=== PATIENT | female | born 1965 | race Caucasian/White ===

== ENCOUNTER 2023-09-17 14:03 | Outpatient (CLI) | payer OTHER, SELFPAY ==
--- NOTE | ~2023-09-17 | US_ITS ---
EXAMINATION: US thyroid DATE: 09/17/2023 14:30 INDICATION: Right thyroid nodule. TECHNIQUE: Multiple ultrasound images of the thyroid were obtained. COMPARISON: None. FINDINGS: The right thyroid lobe measures 4.7 x 2.7 x 2.2 cm. The left thyroid lobe measures 4.5 x 1.7 x 1.5 c m. In the right thyroid lobe, there is a 2.6 cm predominantly solid, hypoechoic, wider than tall nod ule with lobulated margin without echogenic foci (TI-RADS TR4). In the left thyroid lobe, there is a 10 mm almost entirely cystic nodule (TR1). IMPRESSION: 1. Thyroid nodules. Ultrasound-guided fine needle aspiration of the 2.6 cm right thyroid nodule is re commended. Reviewed, dictated and finalized at location A. IMPRESSION: 1. Thyroid nodules. Ultrasound-guided fine needle aspiration of the 2.6 cm righ t thyroid nodule is recommended.
== END 2023-09-17 14:04 | disposition home or self-care (01) ==
LOC: CHSIMG 14:09
PROVIDERS: PCP Physician Assistant; Visit Provider Registered Nurse
DX: E04.2 Nontoxic multinodular goiter (principal)
CPT/HCPCS: 76536

== ENCOUNTER 2024-04-22 12:25 | Outpatient (CLI) | payer OTHER, SELFPAY ==
--- NOTE | ~2024-04-22 | CT_ITS ---
CT Scan of the Chest without Contrast: Clinical Indication: Lung cancer screening, nicotine dependence Technique: Contiguous sections were acquired throughout the chest without intravenous contrast. Dose reduction technique was used on this scan by utilizing automated exposure control and iterative recon struction technique. The dose-length product (DLP) was 223.61 mGy-cm. Findings: There is no evidence of any significant mediastinal, hilar or axillary lymphadenopathy. The mediastin al soft tissues appear normal. There is no evidence of pleural or pericardial effusion. The lungs are clear, aside from calcified left upper lobe granuloma. Images through the upper abdomen reveal no abnormalities. Impression: Lung RADS 2: Benign appearance. 12 month follow-up screening CT advised. Reviewed, dictated and finalized at location . INAL INTELLIGENCE ANALYST Impression: Lung RADS 2: Benign appearance. 12 month follow-up screening CT advised.
--- NOTE | ~2024-04-22 | MM_ITS ---
EXAMINATION: MM screening fredy BI w elisa HISTORY: Screening TECHNIQUE: Craniocaudal and mediolateral oblique 3-D tomosynthesis images were obtained and synthetic 2-D images were generated. CAD analysis was submitted and interpreted. COMPARISON: No prior mammogram is available for comparison at this institution. BREAST PARENCHYMAL COMPOSITION: There are scattered areas of fibroglandular density. FINDINGS: There is no evidence of suspicious mass, calcification, or architectural distortion to sugg est malignancy in either breast. There has been no suspicious interval change. IMPRESSION: 1. No mammographic evidence of malignancy. 2. Recommend routine screening mammography in one year. BI-RADS Category 1: Negative Reviewed, dictated and finalized at location A. ENGINEER
--- OUTSIDE RECORDS SUMMARY | 2024-04-24 00:20 | XMS_ITS ---
Author Organization Unknown Address [address] [place] [address] [phone] Phone Care Team Providers Care Financial Administrator Name Role Phone JIMENA PERRY Attending Unavailable FAITH GUTIÉRREZ Primary Unavailable Immunization Immunization Date Status Additional Notes Code Code System influenza, [id number] 01/01/2014 Completed 123 CVX Influenza, split virus, trivalent, preservative 04/25/2015 Completed 141 CVX Influenza, split virus, quadrivalent, preservative 05/29/2016 Completed 158 C VX Influenza, split virus, quadrivalent, preservative 03/12/2017 Completed 158 C VX COVID-19, mRNA, LNP-S, PF, 3 0 mcg/0.3 mL dose 01/06/2021 Completed 208 CVX COVID-19, mRNA, LNP-S, PF, 3 0 mcg/0.3 mL dose 01/27/2021 Completed 208 CVX Results SHOULDER MIN 2V LEFT - Compl eted: 04/22/2024 14:35 LOINC: \TM00\12PI\DRAo\BM09\ \MRLo\ [address] [address] ---------NAME--------- NUMBER SEX AGE ADMIT DISC. XRAY# F/C TYPE DEDE BARILLAS [id number] F 58 04/22/24 04/22/24 23514 XB7 O/P DATE OF : 1965 M/R# [id number] PH#: [phone] RM \MRHx\ LOCATION: TRANSCRIBED: 04/22/24 15:03 SHOULDER MIN 2V LEFT [id number] COMPLETED:04/22/24 14:35 [id number] {REASON-SHLR/AC/CLAV: LT SHOULDER PAIN PHYSICIAN: JIMENA SOUTH Y R A D I O L O G Y R E P O R T CLINICAL INDICATION: LT SHOULDER PAIN TECHNIQUE: 4 radiographic views of the left shoulder were obtained. Comparison: None FINDINGS/IMPRESSION: There is no evidence of acute fracture or dislocation. The visualized joint space is well maintained. The alignment is anatomical. There is no radiopaque foreign body. RT FREIGHT MANAGER \ITLo\ \UNDo\ \UNDx\ \ITLx\ Reviewed and Electronically Signed by: Faith Vasquez MD Signed Date: 04/22/24 15:03 04/22/[email or web address] .to [facility] via fax Social History Type Status Start Date End Date Code Code Syst em Smoking History Current every day smoker [id number] SNOMED CT Sex Female Medications Medication Start Date End Date Route Frequency Dose Code Code System Medication Instructions Home Meds CeleBREX 50MG Oral Capsule 08/08/2023 Unknown ORAL TWICE A DAY 50 MILLIGRAMS 600664 RxNorm TAKE 50 MILLIGRAMS ORAL TWICE A DAY Gabapentin 800MG Oral Tablet 08/08/2023 Unknown ORAL THREE TIMES A DAY 800 MILLIGRAMS 702005 RxNorm TAKE 800 MILLIGRAMS ORAL THREE TIMES A DAY Pepcid 40MG Oral Tablet 08/08/2023 Unknown ORAL TWICE A DAY 40 MILLIGRAMS 311190 RxNorm TAKE 40 MILLIGRAMS ORAL TWICE A DAY Hospital Discharge Instructions Should you have any questions prior to discharge, please contact a member of your healthcare team. If you have left the hospital and have any questions, please contact your primary care physician. Reason For Referral No Data Found Allergies and Adverse Reactions Allergy Substance Reaction Severity Start Date Concern Status Co de Code System METHYLPHENIDATE Active 6901 RxNorm BENTYL Active 20290408 RxNorm RITALIN Active 546270 RxNorm Plan of Treatment EGD/Colonoscopy 09/21/2022 EGD 08/08/2023 Encounters Encounter Diagnosis Start Date Code Code Sys tem 04/22/2024 [id number] SNOMED-CT Personal Care Team Section Performer Name Performer Role Active Date Inactive INGRIS Cifuentes PCP - Primary care physician 2021-01-30 2023-07-[address] [facility] 04/22/2024 15:[address] [address] ---------NAME--------- NUMBER SEX AGE ADMIT DISC. XRAY# F/C TYPE DEDE BARILLAS [id number] F 58 04/22/24 04/22/24 59645 XB7 O/P DATE OF : 1965 M/R# [id number] #: [id number] LOCATION: TRANSCRIBED: 04/22/24 15:03 SHOULDER MIN 2V LEFT [id number] COMPLETED:04/22/24 14:35 [id number] {REASON-SHLR/AC/CLAV: LT SHOULDER PAIN PHYSICIAN: JIMENA SOUTH Y RADIOLOGY REPORT CLINICAL INDICATION: LT SHOULDER PAIN TECHNIQUE: 4 radiographic views of the left shoulder were obtained. Comparison: None FINDINGS/IMPRESSION: There is no evidence of acute fracture or dislocation. The visualized joint space is well maintained. The alignment is anatomical. There is no radiopaque foreign body. RT FREIGHT MANAGER Reviewed and Electronically Signed by: Faith Vasquez MD Signed Date: 04/22/24 15:03 04/22/[email or web address].[email or web address] .to [facility] via fax
--- OUTSIDE RECORDS SUMMARY | 2024-04-24 00:20 | XMS_ITS ---
Author Organization Unknown Address [address] [place] [address] [phone] Phone Care Team Providers Care Medical Equipment Sales Name Role Phone ARIANNA Altman Attending Unavailable FABIAN CLAY CRNA Unavailable FAITH GUTIÉRREZ Primary Unavailable Immunization Immunization Date Status Additional Notes Code Code System influenza, [id number] 01/01/2014 Completed 123 CVX Influenza, split virus, trivalent, preservative 04/25/2015 Completed 141 CVX Influenza, split virus, quadrivalent, preservative 05/29/2016 Completed 158 C VX Influenza, split virus, quadrivalent, preservative 03/12/2017 Completed 158 C VX COVID-19, mRNA, LNP-S, PF, 3 0 mcg/0.3 mL dose 01/06/2021 Completed 208 CVX COVID-19, mRNA, LNP-S, PF, 3 0 mcg/0.3 mL dose 01/27/2021 Completed 208 CVX Social History Type Status Start Date End Date Code Code Syst em Smoking History Current every day smoker [id number] SNOMED CT Sex Female Vital Signs Vital Sign Value Unit Chaffee Value Chaffee Unit Date/Time Recent/Initial? Code Code System Body Mass Index 36.59 kg/m2 08/08/2023 10:50 Most Recent 06667 -5 [facility] Body Mass Index 36.59 kg/m2 07/22/2023 11:21 Initial 67952 -5 [facility] Systolic Blood Pressure 130 mm[Hg] 08/08/2023 10:50 Initial 8480- 6 [facility] Diastolic Blood Pressure 76 mm[Hg] 08/08/2023 10:50 Initial 8462- 4 [facility] Body Surface Area 2.39 m2 08/08/2023 10:50 Most Recent 3140- 1 [facility] Body Surface Area 2.39 m2 07/22/2023 11:21 Initial 3140- 1 [facility] Height 177.800 0 cm 70.00 in 08/08/2023 10:50 Most Recent 8302- 2 LOINC Height 177.800 0 cm 70.00 in 07/22/2023 11:21 Initial 8302- 2 [facility] O2 Saturation 99 % 2023 10:50 Initial 56338 -5 [facility] Pulse 75.0 /min 08/08/2023 10:50 Initial 8867- 4 LOINC Respiration 17 /min 08/08/19 10:50 Initial 9279- 1 LOINC Temperature 36.2 Regla 97.1 F 08/08/19 10:50 Initial 8310- 5 LOINC Weight 115.67 kg 255.00 lbs 08/08/2023 10:50 Most Recent 00515 -7 [facility] Weight 115.67 kg 255.00 lbs 07/22/2023 11:21 Initial 81344 -7 LO[facility] Medications Medication Start Date End Date Route Frequency Dose Code Code System Medication Instructions Home Meds CeleBREX 50MG Oral Capsule 08/08/2023 Unknown ORAL TWICE A DAY 50 MILLIGRAMS 574060 RxNorm TAKE 50 MILLIGRAMS ORAL TWICE A DAY Gabapentin 800MG Oral Tablet 08/08/2023 Unknown ORAL THREE TIMES A DAY 800 MILLIGRAMS 123203 RxNorm TAKE 800 MILLIGRAMS ORAL THREE TIMES A DAY Pepcid 40MG Oral Tablet 08/08/2023 Unknown ORAL TWICE A DAY 40 MILLIGRAMS 481547 RxNorm TAKE 40 MILLIGRAMS ORAL TWICE A DAY Hospital Discharge Instructions Should you have any questions prior to discharge, please contact a member of your healthcare team. If you have left the hospital and have any questions, please contact your primary care physician. Reason For Referral No Data Found Procedures Procedure Name Date Status Code Code Syste m Esophagogastroduodenoscopy, flexible, transoral; with transendoscopic ball 08/08/2023 completed 12775 CPT Anesthesia for upper gastroi ntestinal endoscopic procedures, endoscope int 08/08/2023 completed 96142 CPT Allergies and Adverse Reactions Allergy Substance Reaction Severity Start Date Concern Status Co de Code System METHYLPHENIDATE Active 6901 RxNorm BENTYL Active 20290408 RxNorm RITALIN Active 027684 RxNorm Plan of Treatment EGD/Colonoscopy 09/21/2022 EGD 08/08/2023 Encounters Encounter Diagnosis Start Date Code Code Sys tem Dysphagia, unspecified 08/08/2023 SNOME D-CT Personal Care Team Section Performer Name Performer Role Active Date Inactive INGRIS Cifuentes PCP - Primary care physician 2021-01-30 2023-07-22
== END 2024-04-22 12:26 | disposition home or self-care (01) ==
PROVIDERS: PCP Physician Assistant; Visit Provider Registered Nurse
DX: Z12.2 Encounter for screening for malignant neoplasm of respiratory organs (principal); Z12.31 Encounter for screening mammogram for malignant neoplasm of breast; Z87.891 Personal history of nicotine dependence
CPT/HCPCS: 71271; 77063; 77067